=== PATIENT | female | born 1955 | race Caucasian/White ===

== ENCOUNTER 2016-10-14 00:44 | Inpatient (IN) | payer BC ==
[2016-10-14] MEDS ORDERED: Sodium Chloride 0.9% 1000 ML 1,000 ML IV STA (00:59)
[2016-10-14] MEDS ORDERED: Sodium Chloride 0.9% 1000 ML 1,000 ML ONE ×2 (01:00→01:46)
--- NOTE | 2016-10-14 01:11 | ERPHSYRPT ---
- History of Present Illness Time Seen by Provider: 10/14/16 01:05 Source: patient Exam Limitations: no limitations Patient Subjective Stated Complaint: PT STATES 2 DAYS AGO SHE BEGAN HAVING BACK AND FLANK PAIN. REPORTS CHILLS, WEAKNESS, FATIGUE, SOB AND VOMITING. ALSO REPORTS SHE HAS HAD SOME DIARRHEA AND DIFFICULTY URINATING. PT REPORTS SHE HAS RECENTLY DX WITH DMII AND STARTED ON METFORMIN, SHE IS CONCERNED SHE IS EXPERIENCING SIDE EFFECTS. Triage Nursing Assessment: PT IS AOX3, TX TO TRT AREA PER WC, PT IS SHORT OF BREATH WITH SHALLOW, PANTING RESPIRATIONS, SKIN IS PALE AND WARM TO TOUCH, PULSE IS RAPID. PT COMPLAINS OF BACK PAIN THAT RADIATES TO THE LEFT FLANK. Physician History: Pt. with L flank/lat abdominal pain for past 2 days. States pain was worse yesterday at 02/25 but 3/10 today. States pain is sharp, constant, rad to side associated with nausea, vomited X3-5 times/day, fever, dizziness, weakness and SOB adri. worse with activity. No chest pain, diaphoresis, palpitations, cough or URI symptoms. Minimal appetite and fluids input. Timing/Duration: yesterday Method of Injury: unknown Quality: sharp Back Pain Location: lumbar spine (L flank pain) Severity of Pain-Max: severe Severity of Pain-Current: mild (3/) Modifying Factors: Improves With: nothing Associated Symptoms: fever, chills, nausea, vomiting, light-headedness, dizziness, weakness, No sweating, No urinary incontinence, No loss of bowel control, No problems urinating, No tingling in legs/feet Previous symptoms: no prior history Allergies/Adverse Reactions: propofol Allergy (Verified 04/24/16 11:58) Home Medications: Estradiol 1 mg [Estrace 1 mg] 1 mg PO HS 04/02/13 [History] Ropinirole HCl 2 mg PO HS 04/02/13 [History] Metoprolol Tartrate 50 mg PO BID 02/15/15 [History] Atorvastatin Calcium [Lipitor 40Mg] 40 mg PO DAILY 11/16/15 [History] Furosemide 20 mg [Lasix 20 mg] 20 mg PO .PRN 11/16/15 [History] Hx Tetanus, Diphtheria Vaccination/Date Given: No Hx Influenza Vaccination/Date Given: No Hx Pneumococcal Vaccination/Date Given: No Immunizations Up to Date: Yes - Review of Systems Constitutional: Fever, Chills, Fatigue, Lethargy, Weakness Eyes: No Symptoms Ears, Nose, & Throat: No Symptoms Respiratory: Dyspnea, No Cough, No Wheezing Cardiac: Orthopnea, No Chest Pain, No Edema, No Palpitations, No Syncope Abdominal/Gastrointestinal: Nausea, Vomiting, No Abdominal Pain, No Diarrhea, No Hematemesis, No Hematochezia Genitourinary Symptoms: Dysuria, No Frequency, No Incontinence, No Urgency Musculoskeletal: Back Pain, No Neck Pain Skin: No Symptoms, No Rash Neurological: Dizziness, No Focal Weakness, No Headache, No Sensory Changes Psychological: No Symptoms Endocrine: No Symptoms Hematologic/Lymphatic: No Symptoms Immunological/Allergic: No Symptoms All Other Systems: Reviewed and Negative - Past Medical History Pertinent Past Medical History: Yes Neurological History: No Pertinent History ENT History: No Pertinent History Cardiac History: High Cholesterol, Other Respiratory History: Bronchitis, COPD Endocrine Medical History: No Pertinent History, Diabetes Type II Musculoskeletal History: No Pertinent History GI Medical History: No Pertinent History History: No Pertinent History Psycho-Social History: Anxiety, Depression Female Reproductive Disorders: No Pertinent History - Past Surgical History Past Surgical History: Yes Neuro Surgical History: No Pertinent History Cardiac: Cardiac Catheterization (7-8 yrs ago showed one vessel with 70% blockage.) Gastrointestinal: Cholecystectomy, Exploratory Laparoscopy Female Surgical History: Hysterectomy Other Surgical History: LEFT THUMB JOINT SURGERY, foot surgery - Social History Smoking Status: Current every day smoker How long have you smoked: 1.5 PPD Exposure to second hand smoke: No Drug Use: none Patient Lives Alone: No - Female History Hx Last Menstrual Period: HYST - Nursing Vital Signs Nursing Vital Signs: Initial Vital Signs Temperature 103.6 F Temperature Source Rectal Pulse Rate 100 Respiratory Rate 20 Blood Pressure [Right Arm] 119/71 Pain Intensity 4 - Physical Exam General Appearance: no apparent distress, alert Eye Exam: PERRL/EOMI, eyes nml inspection Ears, Nose, Throat Exam: normal ENT inspection Neck Exam: normal inspection, non-tender, supple, full range of motion, No meningismus, No midline tenderness Respiratory Exam: normal breath sounds, lungs clear, No respiratory distress Cardiovascular Exam: regular rate/rhythm, tachycardia, capillary refill <2 sec Gastrointestinal Exam: soft, normal bowel sounds, No tenderness, No mass, No guarding Back Exam: CVA tenderness (L flank pain), decreased range of motion Extremity Exam: normal inspection, normal range of motion, No calf tenderness, No pedal edema Peripheral Pulses: dorsalis-pedis (R): 2+, dorsalis-pedis (L): 2+ Neurologic Exam: alert, oriented x 3, cooperative, 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, normal mood/affect, nml station & gait, sensation nml, No motor deficits Skin Exam: normal color, warm, dry, No rash SpO2 Interpretation: borderline oxygenation SpO2: 92 Oxygen Delivery: Room Air - Course Nursing assessment & vital signs reviewed: Yes EKG Interpreted by Me: RATE (118), Sinus Tach, NORMAL AXIS, NORMAL INTERVALS, NORMAL QRS, Non-specific ST Changes - Radiology Exams Chest X-ray Interpretation: Teleradiologist Report, No Pneumonia - CT Exams Abdomen/Pelvis CT Interpretation: Tele-radiologist Report, Other (hydrouereter with mild hydronephrosis, possible 2.1 mm distal ureteral stone, perinephric edema consistent with pyeloneprhritis) Ordered Tests: Active Orders 24 hr Category Date Time Status 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 Care 10/14/16 01:31 Active EKG-ER Only STAT Care 10/14/16 01:04 Active IV Insertion STAT Care 10/14/16 00:59 Active cath [Cath for Specimen-Straight] STAT Care 10/14/16 01:40 Active ABDOMEN AND PELVIS W/0 CONTRAS [CT] Stat Exams 10/14/16 01:43 Taken CHEST 1 VIEW (PORTABLE) Stat Exams 10/14/16 01:19 Taken BLOOD CULTURE Stat Lab 10/14/16 01:25 Received BMP Stat Lab 10/14/16 01:15 Completed CBC W DIFF Stat Lab 10/14/16 01:15 Completed CULTURE,URINE Stat Lab 10/14/16 01:40 Received Lactic Acid Stat Lab 10/14/16 01:20 Completed Manual Differential NC Stat Lab 10/14/16 01:15 Completed UA W/ MICROSCOPIC Stat Lab 10/14/16 01:40 Completed Medication Summary Generic Name Dose Route Start Last Admin Trade Name Freq PRN Reason Stop Dose Admin Sodium Chloride 1,000 mls @ 125 mls/hr 10/14/16 02:00 10/14/16 02:01 Sodium Chloride 0.9% 1000 Ml IV 11/13/16 01:59 125 mls/hr .Q8H SASHA Administration Levofloxacin/Dextrose 500 mg in 100 mls @ 100 mls/hr 10/14/16 02:19 Levofloxacin 500mg/100ml D5w IV 10/14/16 03:18 STAT ONE Discontinued Medications Generic Name Dose Route Start Last Admin Trade Name Cleo PRN Reason Stop Dose Admin Acetaminophen 975 mg 10/14/16 01:21 10/14/16 01:27 Tylenol 325 Mg PO 10/14/16 01:22 975 mg STAT STA Administration Acetaminophen Confirm 10/14/16 01:25 Tylenol 325 Mg Administered 10/14/16 01:26 Dose 975 mg .ROUTE .STK-MED ONE Fentanyl Citrate 25 mcg 10/14/16 02:26 Sublimaze 100 Mcg/2 Ml IV 10/14/16 02:27 STAT ONE Fentanyl Citrate Confirm 10/14/16 02:29 Sublimaze 100 Mcg/2 Ml Administered 10/14/16 02:30 Dose 100 mcg .ROUTE .STK-MED ONE Sodium Chloride Confirm 10/14/16 01:00 Sodium Chloride 0.9% 1000 Ml Administered 10/14/16 01:01 Dose 1,000 mls @ ud .ROUTE .STK-MED ONE Sodium Chloride 1,000 mls @ 999 mls/hr 10/14/16 00:59 10/14/16 00:59 Sodium Chloride 0.9% 1000 Ml IV 10/14/16 01:59 999 mls/hr .Q1H1M STA Administration Sodium Chloride Confirm 10/14/16 01:46 Sodium Chloride 0.9% 1000 Ml Administered 10/14/16 01:47 Dose 1,000 mls @ ud .ROUTE .STK-MED ONE Levofloxacin/Dextrose Confirm 10/14/16 02:25 Levofloxacin 500mg/100ml D5w Administered 10/14/16 02:26 Dose 500 mg in 100 mls @ ud IV .STK-MED ONE Ketorolac Tromethamine 30 mg 10/14/16 01:45 10/14/16 01:49 Toradol 30 Mg Injection IV 10/14/16 01:46 30 mg STAT ONE Administration Ketorolac Tromethamine Confirm 10/14/16 01:46 Toradol 30 Mg Injection Administered 10/14/16 01:47 Dose 30 mg .ROUTE .STK-MED ONE Ondansetron HCl 4 mg 10/14/16 01:32 10/14/16 01:49 Zofran 4 Mg/2 Ml Vial IV 10/14/16 01:33 4 mg STAT ONE Administration Ondansetron HCl Confirm 10/14/16 01:48 Zofran 4 Mg/2 Ml Vial Administered 10/14/16 01:49 Dose 4 mg .ROUTE .STK-MED ONE Lab/Rad Data: Laboratory Result Diagrams 10/14/16 01:15 10/14/16 01:15 Laboratory Results 10/14/16 10/14/16 10/14/16 Range/Units 01:40 01:20 01:15 WBC (4.0-10.5) K/mm3 RBC (4.1-5.4) M/mm3 Hgb (12.0-16.0) gm/dl Hct (35-47) % MCV (78-100) fl MCH (26-32) pg MCHC (32-36) g/dl RDW (11.5-14.0) % Plt Count (150-450) K/mm3 MPV (6-9.5) fl Sodium 132 L (136-145) mEq/L Potassium 3.4 L (3.5-5.1) mEq/L Chloride 95 L (98-107) mEq/L Carbon Dioxide 22.4 (21-32) mEq/L Anion Gap 18.0 H (5-15) MEQ/L BUN 14 (9-20) mg/dL Creatinine 1.35 H (0.55-1.30) mg/dl Estimated GFR 43 ML/MIN Glucose 169 H (70-110) MG/DL Lactic Acid 1.6 (0.4-2.0) Calcium 9.3 (8.5-10.1) mg/dL Ur Collection Type CATH Urine Color GERI (YELLOW) Urine Appearance SLIGHTLY CLOUDY (CLEAR) Urine pH 5.5 (5-6) Ur Specific [place] 1.020 (1.005-1.025) Urine Protein 100 (Negative) Urine Glucose (UA) NEGATIVE (NEGATIVE) mg/dL Urine Ketones TRACE (NEGATIVE) Urine Nitrite NEGATIVE (NEGATIVE) Urine Bilirubin MODERATE (NEGATIVE) Urine Urobilinogen 2 (0-1) mg/dL Urine WBC (Auto) MODERATE (NEGATIVE) Urine RBC (Auto) MODERATE (0-5) Madhav/ul Urine Microscopic RBC 5-10 (0-2) /HPF Urine Microscopic WBC 50-100 (0-5) /HPF Ur Epithelial Cells RARE (FEW) /HPF Urine Bacteria MODERATE (NEGATIVE) /HPF Specimen Received [id number] 10/14/16 Range/Units 01:15 WBC 22.1 H (4.0-10.5) K/mm3 RBC 5.27 (4.1-5.4) M/mm3 Hgb 15.9 (12.0-16.0) gm/dl Hct 47.7 H (35-47) % MCV 90.5 (78-100) fl MCH 30.2 (26-32) pg MCHC 33.3 (32-36) g/dl RDW 13.2 (11.5-14.0) % Plt Count 229 (150-450) K/mm3 MPV 10.3 H (6-9.5) fl Sodium (136-145) mEq/L Potassium (3.5-5.1) mEq/L Chloride (98-107) mEq/L Carbon Dioxide (21-32) mEq/L Anion Gap (5-15) MEQ/L BUN (9-20) mg/dL Creatinine (0.55-1.30) mg/dl Estimated GFR ML/MIN Glucose (70-110) MG/DL Lactic Acid (0.4-2.0) Calcium (8.5-10.1) mg/dL Ur Collection Type Urine Color (YELLOW) Urine Appearance (CLEAR) Urine pH (5-6) Ur Specific [place] (1.005-1.025) Urine Protein (Negative) Urine Glucose (UA) (NEGATIVE) mg/dL Urine Ketones (NEGATIVE) Urine Nitrite (NEGATIVE) Urine Bilirubin (NEGATIVE) Urine Urobilinogen (0-1) mg/dL Urine WBC (Auto) (NEGATIVE) Urine RBC (Auto) (0-5) Madhav/ul Urine Microscopic RBC (0-2) /HPF Urine Microscopic WBC (0-5) /HPF Ur Epithelial Cells (FEW) /HPF Urine Bacteria (NEGATIVE) /HPF Specimen Received - Progress Progress: improved Progress Note: 10/14/16 01:28 Pt. given IVF's, Tylenol and Zofran with improvement of BP/HR. Initial SBP in 80's improved to 110's, HR decrease from 130's to 100's 10/14/16 02:39 Pt. also given Fentanyl, Levaquin and Toradol with some relief of her flank pain Discussed with : Rachael (Notified about pt. and agrees to admit) Will see patient in: hospital (observation) Counseled pt/family regarding: lab results, diagnosis, rad results - Departure Time of Disposition: 02:41 Departure Disposition: Observation Clinical Impression: Pyelonephritis, acute, Renal lithiasis Condition: Stable Critical Care Time: No
[2016-10-14] MEDS ORDERED: TYLENOL 325 MG PO STA (01:21)
[2016-10-14] MEDS ORDERED: TYLENOL 325 MG ONE (01:25)
[2016-10-14] MEDS ORDERED: Zofran 4 MG/2 ML VIAL IV ONE (01:32)
[2016-10-14 01:33] LABS: Mean Cell Volume 90.5 fl (78-100); Mean Corpuscular Hemoglobin 30.2 pg (26-32); Mean Platelet Volume 10.3 fl (6-9.5); Platelet Count 229 K/mm3 (150-450); Red Blood Count 5.27 M/mm3 (4.1-5.4); Red Cell Distribution Width 13.2 % (11.5-14.0); White Blood Count 22.1 K/mm3 (4.0-10.5)
[2016-10-14] MEDS ORDERED: TORAdol 30 mg Injection IV ONE (01:45)
[2016-10-14] MEDS ORDERED: TORAdol 30 mg Injection ONE (01:46)
[2016-10-14] MEDS ORDERED: Zofran 4 MG/2 ML VIAL ONE (01:48)
[2016-10-14 01:50] LABS: Carbon Dioxide 22.4 mEq/L (21-32); Potassium 3.4 mEq/L (3.5-5.1)
[2016-10-14] MEDS ORDERED: Sodium Chloride 0.9% 1000 ML 1,000 ML IV SCH (02:00)
[2016-10-14 02:07] LABS: Collection Type CATH
[2016-10-14 02:08] LABS: ADD URINE CULTURE? YES (NO); Bacteria MODERATE /HPF (NEGATIVE); COMPLETE URINE MICROSCOPIC? YES; Epithelial Cells RARE /HPF (FEW); Ph 5.5 (5-6); WBC 50-100 /HPF (0-5)
[2016-10-14] MEDS ORDERED: Levofloxacin 500MG/100ML D5W 500 MG/100 ML BAG IV ONE ×2 (02:19→02:25)
[2016-10-14] MEDS ORDERED: SUBLIMAZE 100 MCG/2 ML IV ONE (02:26)
[2016-10-14] MEDS ORDERED: SUBLIMAZE 100 MCG/2 ML ONE (02:29)
[2016-10-14 03:55] LABS: BAND 4 % (0.0-2.0); Platelet Estimate NORMAL (NORMAL); Total Cells Counted 100
[2016-10-14] MEDS ORDERED: Zofran 4 MG/2 ML VIAL IV PRN (04:07)
[2016-10-14] MEDS ORDERED: REQUIP 2MG TAB ONE (04:15)
[2016-10-14] MEDS: REQUIP 2MG TAB PO SCH ×2 (04:16→21:58)
[2016-10-14] MEDS: Sodium Chloride 0.9% 1000 ML 1,000 ML IV SCH ×2 (04:25→18:43)
[2016-10-14] MEDS: TYLENOL 325 MG PO PRN ×2 (07:56→16:39)
--- NOTE | 2016-10-14 10:16 | PCM.HP ---
History of Present Illness - Chief Complaint Chief Complaint: acute pyelonephritis History of Present Illness: is a 61 year old female pt from [facility] who sees Laurita Zamudio, came to ER yesterday due to vomiting and not urinating all day. The night before she had 10/10 low back pain radiating to L groin. Subjective fever. Some fatigue and dizziness. She was found to have BP in the 90s systolic in the ER and CT revealed 2.1 mm distal ureteral stone and stranding indicative of pyelonephritis , supported by UA results. She was admitted to the ICU on IV fluids and IV levaquin. She has been having some SOB, she states she gets this when she is sick as she has COPD. Tmax last night 103.6. Has not urinated since admission. BP around 90 systolic overnight; this a.m. BP in the 100s systolic. - Review of Systems Constitutional: Fever, Fatigue, Weakness Respiratory: Short Of Breath Abdominal/Gastrointestinal: Abdominal Pain, Nausea, Vomiting, Diarrhea (2d ago; stopped when she d/c'd her metformin), Appetite Changes Genitourinary Symptoms: Dysuria Skin: Rash (few weeks ago, on the back; resolved) Psychological: No Depression, No Suicidal Ideations Medications & Allergies Home Medications: Home Medication List Estradiol 1 mg [Estrace 1 mg] 1 mg PO HS 04/02/13 [History Confirmed 10/14] Ropinirole HCl 2 mg PO HS 04/02/13 [History Confirmed 10/14/16] Metoprolol Tartrate 50 mg PO BID 02/15/15 [History Confirmed 10/14/16] Atorvastatin Calcium [Lipitor 40Mg] 40 mg PO DAILY 11/16/15 [History Confirmed 10/14/16] Furosemide 20 mg [Lasix 20 mg] 20 mg PO .PRN 11/16/15 [History Confirmed 10/14/16] Gemfibrozil 600 mg [Lopid 600 mg] 600 mg PO BID 10/14/16 [History Confirmed 10/14/16] Metformin HCl [Metformin HCl ER] 500 mg PO BID 10/14/16 [History Confirmed 10/14] Omeprazole 20 MG [Prilosec 20 mg] 20 mg PO DAILY 10/14/16 [History Confirmed ] Allergies/Adverse Reactions: Allergies Allergy/AdvReac Type Severity Reaction Status Date / Time propofol Allergy Verified 04/24/16 11:58 - Past Medical History Past Medical History: Yes Neurological History: No Pertinent History ENT History: No Pertinent History Cardiac History: High Cholesterol, Hypertension Respiratory History: COPD, Pneumonia Endocrine Medical History: Diabetes Type II Musculoskelatal History: No Pertinent History GI Medical History: Gallbladder Disease History: No Pertinent History Pyscho-Social History: Anxiety, Depression Reproductive Disorders: No Pertinent History - Female History Hx Last Menstrual Period: HYST Are you now?: No - Past Surgical History Past Surgical History: Yes Neuro Surgical History: No Pertinent History Cardiac History: No Pertinent History Respiratory Surgery: No Pertinent History GI Surgical History: Cholecystectomy Genitourinary Surgical Hx: No Pertinent History Musculskeletal Surgical Hx: Other Female Surgical History: Hysterectomy Other Surgical History: partial hysterectomy, left hand surgery, and left foot surgery - Social History Smoking Status: Current every day smoker How long have you smoked: 50 years Exposure to second hand smoke: No Alcohol: None Drug Use: none - Physical Exam Vital Signs: Vital Signs - 24 hr Temp Pulse Resp BP Pulse Ox 10/14/16 08:00 97 H 10/14/16 07:29 98.5 F 97 H 24 88/46 99 10/14/16 06:42 87 22 94/54 94 L 10/14/16 06:05 84 90/54 10/14/16 05:33 82 95/55 10/14/16 04:34 83 102/62 10/14/16 04:13 96 10/14/16 04:07 89 88/61 10/14/16 04:00 97.8 F 90 28 H 72/46 95 10/14/16 03:08 99.6 F 93 H 24 80/50 95 10/14/16 02:50 101 F 10/14/16 02:45 92 L 10/14/16 02:22 100 H 20 94 L 10/14/16 01:40 103.6 F 10/14/16 01:21 113 H 119/71 93 L 10/14/16 01:10 85/50 10/14/16 00:49 100.3 F 134 H 34 H 86/37 92 L 10/14/16 00:45 100.3 F 134 H 34 H 86/37 92 L Oxygen-Last 24 hours O2 Percentage 2 Liters = 28% O2 Percentage 2 Liters = 28% O2 Percentage 2 Liters = 28% O2 Percentage 2 Liters = 28% General Appearance: no apparent distress, alert Neurologic Exam: oriented x 3, cooperative Eye Exam: PERRL/EOMI, eyes nml inspection, No scleral icterus Ears, Nose, Throat Exam: pharynx normal, moist mucous membranes Neck Exam: normal inspection, non-tender, No lymphadenopathy Respiratory Exam: lungs clear, prolonged expirations, wheezing (faint, scattered ), No crackles/rales, No rhonchi Cardiovascular Exam: normal heart sounds, other (mild tachycardia, regular rhythm), No murmur Gastrointestinal/Abdomen Exam: soft, normal bowel sounds, No tenderness, No distention, No mass, No guarding, No rebound Back Exam: normal inspection, No CVA tenderness Extremity Exam: No pedal edema, No swelling Skin Exam: normal color, warm, dry, No rash Results - Labs Lab/Micro Results: Accuchecks Accucheck Value: 99 Accuchecks Accucheck Value: 99 Assessment/Plan (1) Sepsis Current Visit: Yes Status: Acute Qualifiers: Sepsis type: sepsis due to unspecified organism Qualified Code(s): A41.9 - Sepsis, unspecified organism Assessment & Plan: Pyelonephritis, with fever, tachycardia, and hypotension. She has received IV fluids; will do a gentle bolus again. On IV levaquin day #2. Expect some fever today/tonight but decreased from yesterday. BP is actually improving currently. Blood and urine cultures pending. (2) Hypotension Current Visit: Yes Status: Acute Qualifiers: Hypotension type: unspecified hypotension type Qualified Code(s): I95.9 - Hypotension, unspecified Assessment & Plan: due to sepsis. Improving. Code(s): I95.9 - HYPOTENSION, UNSPECIFIED (3) Pyelonephritis, acute Current Visit: Yes Status: Acute Assessment & Plan: on IV levaquin day #2. Urine culture pending. Code(s): N10 - ACUTE PYELONEPHRITIS (4) Dyspnea Current Visit: Yes Status: Acute Qualifiers: Dyspnea type: shortness of breath Qualified Code(s): R06.02 - Shortness of breath Assessment & Plan: Likely related to her COPD, however, will give treatment dose of SQ lovenox unless her d-dimer is negative (however with current pyelonephritis, will probably be positive). Cannot do CTA chest due to renal function. If renal function improves, may be able to do CTA; if not would plan to do VQ scan unless her dyspnea improves. Code(s): R06.00 - DYSPNEA, UNSPECIFIED (5) Renal lithiasis Current Visit: Yes Status: Acute Assessment & Plan: A 2.1 mm stone distal ureter, should pass, strain urine. May add flomax when BP improves. (6) COPD (chronic obstructive pulmonary disease) Current Visit: Yes Status: Chronic (7) HTN (hypertension) Current Visit: Yes Status: Chronic Qualifiers: Hypertension type: essential hypertension Qualified Code(s): I10 - Essential (primary) hypertension Assessment & Plan: hold meds as she has been hypotensive. restart toprol when bp increases over 120 systolic. Code(s): I10 - ESSENTIAL (PRIMARY) HYPERTENSION (8) DVT prophylaxis Current Visit: Yes Status: Acute Assessment & Plan: as noted above, treatment dose of lovenox currently. Code(s): FMF0733 - (9) Oliguria Current Visit: Yes Status: Acute Assessment & Plan: After I saw the pt she did void 100cc. Bolus now. If not producing more urine today will check bladder scan. Code(s): R34 - ANURIA AND OLIGURIA (10) Tobacco abuse Current Visit: Yes Status: Acute Assessment & Plan: 1.5 PPD smoker; 21mg nicoderm patch placed. Code(s): Z72.0 - TOBACCO USE
--- NOTE | 2016-10-14 10:23 | XRAY ---
Indication: Short of breath. Back pain. Comparison: August 21, 2016. Portable chest again without focal infiltrate, consolidation, or large effusion. Heart is not enlarged. Bony thorax intact again with mild degenerative changes. Impression: Stable nonacute chest. Comment: Preliminary interpretation was made by [facility]. No discrepancy.
--- NOTE | 2016-10-14 10:26 | XRAY ---
Indication: Back and flank pain. Nausea, emesis, and fever. Multiple contiguous axial images obtained through the abdomen and pelvis without contrast as ordered. Comparison: December 28, 2010. Lung bases are clear. Heart is not enlarged. Left kidney is now prominent with moderate perirenal stranding favoring pyelonephritis. Ureter also demonstrates stranding along its course. Stable tiny left pelvic floor calcifications favoring phlebolith. No calculus, hydronephrosis, or hydroureter. There are now several subcentimeter periaortic nodes probably reactive. Again there are bilateral renal cysts including left pararenal cyst. Right lower pole cyst has increased in size measuring 2.3 cm. Noncontrasted stomach and bowel loops appear nonobstructed. Minimal descending/sigmoid diverticulosis without diverticulitis. Again previous cholecystectomy and hysterectomy. No free fluid/air. Remaining liver, pancreas, spleen, adrenal glands, and bladder appear unremarkable for noncontrast exam. Mild aortoiliac calcifications without AAA. Osseous structures intact again with mild degenerative changes throughout the spine. Impression: 1. Left kidney is now prominent with moderate perirenal stranding but no hydronephrosis/hydroureter favoring pyelonephritis. Additional stranding seen along the course of the left ureter. 2. Several tiny periaortic lymph nodes presumed reactive. 3. Again incidental bilateral renal cysts and colonic diverticulosis. Comment: Preliminary interpretation was made by [facility] who reports distal left ureter calculus which I believe is a pelvic phlebolith as it is unchanged. There has also no hydronephrosis/hydroureter. I gave telephone report to Dr. Beltran in the ER at 1012 hrs. on October 14, 2016.
[2016-10-14] MEDS: Nicoderm CQ 21 MG TOP SCH (10:42)
[2016-10-14] MEDS: PROTONIX 40 MG IV IV SCH (10:43)
[2016-10-14] MEDS: ENOXAPARIN SODIUM SQ SCH ×2 (11:39→21:58)
[2016-10-14] MEDS: DILAUDID 2 MG INJECTION IV PRN ×2 (18:10→23:33)
[2016-10-14] MEDS: ESTRACE 1 MG PO SCH (21:57)
[2016-10-14] MEDS: LIPITOR 40MG PO SCH (21:58)
[2016-10-14] MEDS ORDERED: Levofloxacin 500MG/100ML D5W 500 MG/100 ML BAG IV SCH (22:00)
[2016-10-14] MEDS ORDERED: MOTRIN 600 MG PO PRN (23:58)
[2016-10-15] MEDS ORDERED: TYLENOL 325 MG PO PRN (00:02)
[2016-10-15] MEDS ORDERED: MOTRIN 600 MG ONE (00:13)
[2016-10-15] MEDS: Sodium Chloride 0.9% 1000 ML 1,000 ML IV SCH ×3 (01:46→21:14)
[2016-10-15 05:41] LABS: BASOPHIL % 0.1 % (0.0-0.4); Eosinophil % 1.7 % (0.00-5.0); Granulocytes % 80.5 % (36.0-66.0); Lymphocytes % 12.6 % (24.0-44.0); Mean Cell Volume 94.9 fl (78-100); Mean Corpuscular Hemoglobin 30.5 pg (26-32); Mean Platelet Volume 10.3 fl (6-9.5); Monocytes % 5.1 % (0.0-12.0); Platelet Count 182 K/mm3 (150-450); Red Cell Distribution Width 13.3 % (11.5-14.0); White Blood Count 12.9 K/mm3 (4.0-10.5)
[2016-10-15 05:58] LABS: ALBUMIN 2.1 g/dL (3.4-5.0); ANION GAP 12.6 MEQ/L (5-15); BILIRUBIN,TOTAL 0.6 mg/dL (0.2-1.0); Carbon Dioxide 23.7 mEq/L (21-32); Potassium 3.2 mEq/L (3.5-5.1); Total Protein 6.4 gm/dL (6.4-8.2)
[2016-10-15] MEDS ORDERED: HOLD METFORMIN PRODUCTS FOR 48 HOURS MC PRN (08:35)
[2016-10-15] MEDS: DILAUDID 2 MG INJECTION IV PRN ×2 (08:39→22:52)
--- NOTE | 2016-10-15 09:23 | XRAY ---
Exam: Urinary bladder ultrasound from 10/14/2016. Comparison: CT of the abdomen and pelvis without IV contrast from 10/14/2016. Indication: Decreased urine output. Findings: The filled urinary bladder measured 9.48 cm in length, 7.18 cm in AP depth, and 8.75 cm in width yielding an estimated urinary bladder volume of 312.1 ML's. No obvious mass was seen. Some reverberation artifact is seen within the bladder lumen. No urinary bladder wall thickening is seen. The patient was then allowed to void. Images of the post void urinary bladder measured 6.3 cm in length, 5.34 cm in AP dimension, and 6.7 cm in width yielding an estimated urinary bladder volume of 118.0 ML's. Impression: 1. Prevoid urinary bladder volume measured 312.1 ML's and postvoid urinary bladder volume measured 118.0 ML's. This corresponds to a 37.8% urinary bladder residual. Correlate clinically.
--- NOTE | 2016-10-15 09:59 | XRAY ---
Exam: CT of the chest with IV contrast . CTDI: 23.69 Comparison: AP portable chest film from 10/14/2016 at 0145 hours. Indication: Elevated d-dimer (16.53) Technique: Post-IV contrast axial images were obtained through the chest using the PE protocol with 80 cc of Isovue-370 IV contrast material. Only coronal reconstructed MIPS images were available the time of this reading. Findings: The central pulmonary arteries enhance well and reveal no filling defects to suggest clot/emboli. Also, no thoracic aortic aneurysm or dissection is appreciated. No abnormal bulky mediastinal or perihilar lymphadenopathy is seen. No other significant mediastinal or perihilar abnormality is seen. A small amount of left coronary artery vascular calcification is seen. The lungs are adequately expanded. I believe there are some subtle emphysematous changes within the upper lung ocampo. There is a minimal amount of posterior bilateral pleural fluid with adjacent atelectasis at both posterior lung bases, left greater than right. Minimal concomitant infiltrate at the posterior left lung base is difficult to exclude. There is no pneumothorax or suspicious soft tissue lung nodules. The upper abdomen reveals no definite acute process. There may be some fatty infiltration within the liver. Surgical clips consistent with prior cholecystectomy are seen. The adrenal glands appear unremarkable. I believe there is a portion of the cyst seen at the lateral aspect of the middle third of the right kidney measuring 3.6 cm in diameter. There is a 3.3 cm in diameter round indeterminate mass at the anterior aspect of the middle third of the left kidney on at least the 2 most inferior cuts. This is incompletely characterized by this exam. A solid renal lesion is not excluded. I believe there are some small periaortic lymph nodes within the visualized upper to mid abdomen. On a size criteria these are not significant and are probably reactive. Thoracic spurring is evident. No definite fracture or suspicious bone lesion is seen. Impression: 1. I see no evidence of acute pulmonary embolus, thoracic aortic aneurysm, or thoracic aortic dissection. A small amount of left coronary artery vascular calcification is seen. 2. Minimal bilateral posterior pleural effusions with some adjacent atelectasis at both posterior lung bases are seen. The possibility of some minimal concomitant infiltrate at the posterior medial left lung base is difficult to exclude, as I see subtle air bronchograms at this site as well. 3. I believe there are some subtle emphysematous changes within the upper lung ocampo. No other acute cardiopulmonary disease is seen. 4. 3.3 cm in diameter indeterminate left renal mass lesion is seen on the 2 most inferior cuts within the upper abdomen. See axial images #158 and #159. A solid lesion is not excluded. 5. Mild hepatic steatosis.
[2016-10-15] MEDS: ENOXAPARIN SODIUM SQ SCH ×2 (11:00→21:15)
[2016-10-15] MEDS: Nicoderm CQ 21 MG TOP SCH (11:01)
[2016-10-15] MEDS: PROTONIX 40 MG IV IV SCH (11:03)
[2016-10-15] MEDS: MOTRIN 600 MG PO PRN (12:45)
[2016-10-15] MEDS: ESTRACE 1 MG PO SCH (21:16)
[2016-10-15] MEDS: Levofloxacin 500 MG Tablet PO SCH (21:16)
[2016-10-15] MEDS: LIPITOR 40MG PO SCH (21:17)
[2016-10-15] MEDS: REQUIP 2MG TAB PO SCH (21:17)
[2016-10-15] MEDS ORDERED: LIPITOR 40MG PO SCH (22:00)
[2016-10-16] MEDS: MOTRIN 600 MG PO PRN ×2 (03:58→16:08)
[2016-10-16 05:27] LABS: BASOPHIL % 0.1 % (0.0-0.4); Eosinophil % 2.3 % (0.00-5.0); Lymphocytes % 11.8 % (24.0-44.0); Mean Corpuscular Hemoglobin 30.2 pg (26-32); Mean Platelet Volume 10.4 fl (6-9.5); Monocytes % 7.8 % (0.0-12.0); Platelet Count 200 K/mm3 (150-450); Red Blood Count 3.97 M/mm3 (4.1-5.4); Red Cell Distribution Width 13.2 % (11.5-14.0); White Blood Count 9.4 K/mm3 (4.0-10.5)
[2016-10-16] MEDS: Sodium Chloride 0.9% 1000 ML 1,000 ML IV SCH (05:28)
[2016-10-16 05:48] LABS: ALBUMIN 2.3 g/dL (3.4-5.0); ALKALINE PHOSPHATASE 206 U/L (46-116); ANION GAP 12.4 MEQ/L (5-15); BLOOD UREA NITROGEN 6 mg/dL (9-20); CHLORIDE 108 mEq/L (98-107); Glucose 121 MG/DL (70-110); Potassium 3.1 mEq/L (3.5-5.1); SGOT/AST 85 U/L (15-37); SGPT/ALT 50 U/L (12-78); SODIUM 142 mEq/L (136-145); Total Protein 6.8 gm/dL (6.4-8.2)
[2016-10-16] MEDS: DILAUDID 2 MG INJECTION IV PRN ×2 (06:53→12:49)
[2016-10-16] MEDS: ENOXAPARIN SODIUM SQ SCH ×2 (09:58→21:40)
[2016-10-16] MEDS: Nicoderm CQ 21 MG TOP SCH (09:58)
[2016-10-16] MEDS: PROTONIX 40 MG IV IV SCH (09:59)
--- NOTE | 2016-10-16 13:59 | XRAY ---
Exam: Renal ultrasound from 10/16/2016. Comparison: CT of the abdomen and pelvis without IV contrast from 10/14/2016. Indication: Abnormality on CT. The right kidney measures 12.7 cm in length and reveals an unremarkable shape. The renal cortex measures 1.5 cm in diameter and appears unremarkable. A 2.5 cm x 1.6 cm x 3.4 cm in diameter cyst is seen within the upper pole of the right kidney. Bowel gas partially obscures the inferior pole of the right kidney. Previously identified cyst at the inferior posterior margin of the right kidney on the CT study of 10/14/2016 was not imaged by the technologist. No hydronephrosis or solid mass within the right kidney is seen. The left kidney measures 13.8 cm in length and demonstrates a normal reniform shape as well. The left renal cortex measures 1.7 cm within the upper pole on the sagittal image. A 2.6 cm x 2.1 cm x 2.9 cm cyst is seen within the midpole of the left kidney. No hydronephrosis or solid renal mass is seen. The urinary bladder is partially distended. No definite mass or urinary bladder wall thickening is seen. The invasive cardiovascular technologist was unable to identify the distal ureteral jets with color-flow imaging. Impression: 1. Both kidneys appear of unremarkable size and shape. I see no evidence of hydronephrosis. A cyst measuring a maximum of 3.4 cm in diameter is noted within the upper pole of the right kidney. A cyst measuring 2.9 cm in diameter is seen within the mid aspect of the left kidney. No other renal abnormality was seen by this exam. 2. The urinary bladder appears partially distended, but is otherwise unremarkable. Distal ureteral jets were not seen within the urinary bladder with color-flow imaging.
--- NOTE | 2016-10-16 14:22 | XRAY ---
Exam: Duplex Doppler venous ultrasound examination of the right lower extremity from 10/16/2016. Comparison: None. Indication: Right leg swelling. Findings: Ceramic Tile Mechanic sections of the right common femoral, proximal, mid, and distal superficial femoral vein, popliteal vein, and distal posterior tibial veins reveal normal transducer compression, color flow imaging, and spontaneous and phasic Doppler waveforms with normal Doppler signal augmentation throughout. Images of the profunda femoral vein within the proximal right thigh reveal normal color flow imaging and Doppler signal augmentation. In addition, images of the greater saphenous vein within the proximal right thigh reveal normal color flow imaging and Doppler signal augmentation. Impression: 1. No sonographic or Doppler evidence of deep venous thrombosis within the right lower extremity is seen. Nor do I detect evidence of superficial venous thrombosis within the greater saphenous pain within the proximal right thigh.
[2016-10-16] MEDS: Levofloxacin 500 MG Tablet PO SCH (21:41)
[2016-10-16] MEDS: ESTRACE 1 MG PO SCH (21:41)
[2016-10-16] MEDS: LIPITOR 40MG PO SCH (21:41)
[2016-10-16] MEDS: REQUIP 2MG TAB PO SCH (21:42)
[2016-10-17] MEDS: DILAUDID 2 MG INJECTION IV PRN (00:27)
[2016-10-17] MEDS: Sodium Chloride 0.9% 1000 ML 1,000 ML IV SCH (00:27)
[2016-10-17 05:40] LABS: Mean Cell Volume 94.7 fl (78-100); Platelet Count 195 K/mm3 (150-450); Red Blood Count 3.96 M/mm3 (4.1-5.4); Red Cell Distribution Width 13.2 % (11.5-14.0); White Blood Count 9.3 K/mm3 (4.0-10.5)
[2016-10-17 06:03] LABS: ALBUMIN 2.1 g/dL (3.4-5.0); ALKALINE PHOSPHATASE 272 U/L (46-116); ANION GAP 9.1 MEQ/L (5-15); BLOOD UREA NITROGEN 5 mg/dL (9-20); CHLORIDE 108 mEq/L (98-107); Carbon Dioxide 28.7 mEq/L (21-32); Glucose 109 MG/DL (70-110); SGOT/AST 141 U/L (15-37); SGPT/ALT 122 U/L (12-78); SODIUM 143 mEq/L (136-145); Total Protein 6.6 gm/dL (6.4-8.2)
[2016-10-17] MEDS ORDERED: K-LYTE 25 MEQ PO ONE (06:26)
[2016-10-17 07:03] VITALS: BP 132/69; PULSE 80; O2SAT 98
--- NOTE | 2016-10-17 07:43 | PCM.DCORD ---
- Discharge Discharge Date: 10/17/16 Prescriptions: No Action Estradiol 1 mg [Estrace 1 mg] 1 mg PO HS Ropinirole HCl 2 mg PO HS Metoprolol Tartrate 50 mg PO BID Furosemide 20 mg [Lasix 20 mg] 20 mg PO .PRN Atorvastatin Calcium [Lipitor 40Mg] 40 mg PO DAILY Gemfibrozil 600 mg [Lopid 600 mg] 600 mg PO BID Metformin HCl [Metformin HCl ER] 500 mg PO BID Omeprazole 20 MG [Prilosec 20 mg] 20 mg PO DAILY Follow up with: JYOTI BURNETTE [Primary Care Provider] -
[2016-10-17 07:57] LABS: BAND 2 % (0.0-2.0); Eosinophil 1 % (0.00-3.0); Total Cells Counted 100
[2016-10-17 08:03] LABS: ANISOCYTOSIS 1+; Platelet Estimate NORMAL (NORMAL); Poikilocytosis 1+
--- NOTE | 2016-10-17 08:18 | PCM.DCORD ---
- Discharge Discharge Date: 10/17/16 Prescriptions: New Levofloxacin [Levofloxacin 500 MG Tablet] 500 mg PO DAILY #5 tablet Varenicline Tartrate [Chantix] 1 each PO UD #0 tab.ds.pk Potassium Chloride 10 Meq Tab* [Klor Con 10 MEQ] 10 meq PO DAILY #30 tab Continue Estradiol 1 mg [Estrace 1 mg] 1 mg PO HS Ropinirole HCl 2 mg PO HS Metoprolol Tartrate 50 mg PO BID Furosemide 20 mg [Lasix 20 mg] 20 mg PO .PRN Atorvastatin Calcium [Lipitor 40Mg] 40 mg PO DAILY Gemfibrozil 600 mg [Lopid 600 mg] 600 mg PO BID Metformin HCl [Metformin HCl ER] 500 mg PO BID Omeprazole 20 MG [Prilosec 20 mg] 20 mg PO DAILY Follow up with: JYOTI BURNETTE [Primary Care Provider] - 10/24/16 10:15 am
[2016-10-17] MEDS: PROTONIX 40 MG IV IV SCH (09:40)
[2016-10-17] MEDS: Nicoderm CQ 21 MG TOP SCH ×2 (09:40→09:46)
[2016-10-17] MEDS: ENOXAPARIN SODIUM SQ SCH (09:40)
--- NOTE | 2016-10-18 08:56 | DS ---
DISCHARGE DIAGNOSES: 1) ESCHERICHIA COLI. 2) PYELONEPHRITIS. 3) HYPOTENSION. 4) HYPOXIA. 5) NICOTINE ADDICTION. 6) DIABETES MELLITUS TYPE 2. HOSPITAL COURSE: The patient is a 61 year-old white female presented herself to the emergency room due to complaints of left flank pain, fever, vomiting and shortness of breath. The patient on evaluation was found to have 50 to 100 white blood cell per high power field. The urine culture did grow Escherichia coli which was sensitive to Levaquin which she was started on her initial evaluation. The patient was somewhat slow to respond but did respond as her white blood cell count was initially was 22,000 and dropped down to normal range by 10/16/2016. The patient also did have gram negative rods in the blood culture as well which also grew Escherichia coli likewise sensitive to Levaquin. The patient's evaluation otherwise showed CT scan revealing a cyst measuring 2.4 x 2.9 cm in the left kidney. Ultrasound evaluation of this did reveal it was a cyst and not a solid tumor. The patient had complained of some leg swelling. We did venous Doppler of the legs which was negative. The patient did also have elevated D-dimer and shortness of breath which led us to do CT scan of the chest which was negative for pulmonary embolism. The patient improved to the point that we felt that she was ready for discharge home by the morning of 10/17/2016. She was discharged home on Levaquin 500 mg a day for additional five days. She was given a prescription for Chantix to help her quit smoking. She did qualify for home oxygen with an 87% O2 saturation with ambulation. She will be on 2 liters nasal cannulation. She was also somewhat hypokalemic by the time of her discharge. She had a potassium of 3.0 and we gave her Micro-K and added a new prescription for her to take on a daily basis and she is instructed to follow up in the office in the next week at which time we will reassess her metabolic panel including her electrolytes. The patient is to return to the hospital if she has any further problems in the interim.
== END 2016-10-17 11:45 | disposition home or self-care (01) | DRG 868 ==
LOC: ED 00:44 → MED SURG 03:13 → ICU 03:13 → OBSVTOIN 10:10 → MED SURG 10-15 11:09
PROVIDERS: ADMIT Family Medicine; ATTEND Family Medicine
DX: A49.8 Other bacterial infections of unspecified site (principal); N10 Acute pyelonephritis; I95.9 Hypotension, unspecified; R09.02 Hypoxemia; F17.200 Nicotine dependence, unspecified, uncomplicated; A41.9 Sepsis, unspecified organism; E11.9 Type 2 diabetes mellitus without complications; Z99.81 Dependence on supplemental oxygen; J44.9 Chronic obstructive pulmonary disease, unspecified; I10 Essential (primary) hypertension; N20.0 Calculus of kidney; R34 Anuria and oliguria; F41.8 Other specified anxiety disorders; Z79.899 Other long term (current) drug therapy
CPT/HCPCS: 36000; 36415; 71010; 71260; 74176; 76705; 76770; 80048; 80053; 81000; 82962; 83605; 85025; 85379; 87040; 87077; 87086; 87186; 93005; 93041; 93268; 93971; 94760; 96360; 96361; 96365; 96374; 96375; 99285; J1170; J1650; J1885; J1956; J2405; J3010; P9612; A9270-GY

== ENCOUNTER 2023-12-31 08:18 | Day surgery (SDC) | payer BC, MEDICARE ==
[2023-12-31] MEDS ORDERED: Xylocaine-Mpf 2% 5 Ml Vial IJ ONE (08:19)
[2023-12-31] MEDS ORDERED: Lactated Ringers 1,000 ML IV ONE (09:28)
[2023-12-31] MEDS ORDERED: DIPRIVAN 200 MG/20 ML IV ONE (09:58)
[2023-12-31] MEDS ORDERED: Versed 2 MG/2 ML Injection ONE (09:58)
--- NOTE | 2023-12-31 11:48 | XRAY ---
Indication: Bilateral L4-S1 MBB. Intraoperative fluoroscopy provided for 13 seconds. Single digital spot image submitted for interpretation demonstrates posterior needle tips projecting over the expected left and right L4-S1 nerve roots. Correlate with intraoperative findings/report.
--- NOTE | 2023-12-31 13:35 | XRAY ---
13 seconds of fluoroscopy was used in surgery for a bilateral L4-S1 MBB.
== END 2023-12-31 10:50 | disposition home or self-care (01) ==
LOC: SDC-PAIN 08:18
PROVIDERS: ATTEND Psychiatry & Neurology Pain Medicine
DX: M47.816 Spondylosis without myelopathy or radiculopathy, lumbar region (principal); E11.9 Type 2 diabetes mellitus without complications
CPT/HCPCS: 64483; 64484; 72020; 77002; 82947; J2250; J2704

== ENCOUNTER 2024-03-24 07:40 | Day surgery (SDC) | payer BC, MEDICARE ==
[2024-03-24] MEDS ORDERED: BUPIVACAINE 0.5% VIAL IJ ONE (07:41)
[2024-03-24] MEDS ORDERED: Versed 2 MG/2 ML Injection ONE (09:10)
[2024-03-24] MEDS ORDERED: DIPRIVAN 200 MG/20 ML IV ONE (09:10)
--- NOTE | 2024-03-24 13:45 | XRAY ---
Indication: Bilateral L4-S1 MBB. Intraoperative fluoroscopy provided for 14 seconds. Single digital spot image submitted for interpretation demonstrates posterior needle tips projecting over the expected left and right L4-S1 nerve roots. Correlate with intraoperative findings/report.
--- NOTE | 2024-03-24 14:53 | XRAY ---
14 seconds of fluoroscopy was used in surgery for a bilateral L5-S1 MBB.
== END 2024-03-24 09:44 | disposition home or self-care (01) ==
LOC: SDC-PAIN 07:40
PROVIDERS: ATTEND Psychiatry & Neurology Pain Medicine
DX: M47.816 Spondylosis without myelopathy or radiculopathy, lumbar region (principal); E11.9 Type 2 diabetes mellitus without complications
CPT/HCPCS: 72020; 77002; 82947; J2250; J2704

== ENCOUNTER 2024-07-28 20:03 | Emergency (ER) | payer MEDICARE ==
[2024-07-28 20:17] VITALS: TEMP 98.3
[2024-07-28] MEDS ORDERED: TORAdol 30 mg Injection ONE (21:06)
[2024-07-28] MEDS ORDERED: DECADRON 10MG INJ. ONE (21:06)
[2024-07-28] MEDS: TORAdol 30 mg Injection IV ONE (21:07)
[2024-07-28] MEDS: DECADRON 10MG INJ. IV ONE (21:08)
--- NOTE | 2024-07-28 21:14 | ERPHSYRPT ---
- History of Present Illness Time Seen by Provider: 07/28/24 20:40 Source: patient Exam Limitations: physical impairment Patient Subjective Stated Complaint: pt states that she has been having neck pain since last friday. pt states that she thought she slept on it wrong Triage Nursing Assessment: pt ambulated into the er; pt is axo x4; pt is tear ful; c/o neck pain; pt states 10/10 pain to neck; tenderness with palpation; pt denies fall, trauma, injury to neck; skin PDW; no respiratory distress present; hypertensive Physician History: Patient is a 68-year-old female presents to emergency department for evaluation of left-sided neck pain that started Friday. Patient awoke Friday morning with her symptoms. Patient states that she figured "I slept wrong". Patient reports the pain is gotten progressively worse over the past 4 days. No trauma no fever. No nausea no vomiting no diaphoresis. Patient denies chest pain. Patient states pain is worse when she chews and when she attempts to move her head. Patient denies a history of the same. at bedside. They voiced no other complaints or concerns at this time. Portions of this note were created with voice recognition technology. There may be grammatical, spelling, punctuation or sound alike errors Timing/Duration: day(s) (5 days) Severity: severe (Pain is moderate to severe) Modifying Factors: Improves With: movement Associated Symptoms: denies symptoms Allergies/Adverse Reactions: propofol Allergy (Verified 07/28/24 20:09) Home Medications: Furosemide 20 mg [Lasix 20 mg] 40 mg PO BID PRN 11/16/15 [History] Amlodipine Besylate 5 mg [Norvasc 5 mg] 5 mg PO DAILY 07/28/24 [History] Apixaban [Eliquis] 5 mg PO BID 07/28/24 [History] Budesonide/Glycopyr/Formoterol [Breztri Aerosphere Inhaler] 2 puff IH BID 07/28/24 [History] Dulaglutide [Trulicity] 1.5 mg SQ WEEKLY 07/28/24 [History] Fenofibrate Nanocrystallized [Fenofibrate] 48 mg PO DAILY 07/28/24 [History] Insulin Aspart [Novolog] 3 unit SQ ACHS 07/28/24 [History] Isosorbide Mononitrate 30 mg [Imdur 30 MG] 30 mg PO DAILY 07/28/24 [History] Metoprolol Succinate 50 mg [Toprol Xl 50 MG] 50 mg PO DAILY 07/28/24 [History] Rosuvastatin Calcium 10 mg PO DAILY 07/28/24 [History] Spironolactone 25 mg PO DAILY 07/28/24 [History] Tizanidine HCl 2 mg PO QID 07/28/24 [History] Hx Tetanus, Diphtheria Vaccination/Date Given: No Hx Influenza Vaccination/Date Given: Yes Hx Pneumococcal Vaccination/Date Given: Yes Travel Risk - International Travel Have you traveled outside of the country in past 3 weeks: No - Emerging Infectious Disease Are you exhibiting symptoms associated with any current EIDs: No - Review of Systems Constitutional: No Symptoms, No Fever, No Chills Eyes: No Symptoms Ears, Nose, & Throat: No Symptoms Respiratory: No Symptoms, No Cough, No Dyspnea Cardiac: No Symptoms, No Chest Pain, No Edema, No Syncope Abdominal/Gastrointestinal: No Symptoms, No Abdominal Pain, No Nausea, No Vomiting, No Diarrhea Genitourinary Symptoms: No Symptoms, No Dysuria Musculoskeletal: No Symptoms, No Back Pain, No Neck Pain Skin: No Symptoms, No Rash Neurological: No Symptoms, No Dizziness, No Focal Weakness, No Sensory Changes Psychological: No Symptoms Endocrine: No Symptoms Hematologic/Lymphatic: No Symptoms Immunological/Allergic: No Symptoms All Other Systems: Reviewed and Negative - Past Medical History Pertinent Past Medical History: Yes Neurological History: No Pertinent History ENT History: No Pertinent History Cardiac History: High Cholesterol, Hypertension Respiratory History: COPD, Pneumonia Endocrine Medical History: Diabetes Type II Musculoskeletal History: No Pertinent History GI Medical History: Gallbladder Disease History: No Pertinent History Psycho-Social History: Anxiety, Depression Female Reproductive Disorders: No Pertinent History - Past Surgical History Past Surgical History: Yes Neuro Surgical History: No Pertinent History Cardiac: No Pertinent History Respiratory: No Pertinent History Gastrointestinal: Cholecystectomy Genitourinary: No Pertinent History Musculoskeletal: Other Female Surgical History: Hysterectomy Other Surgical History: partial hysterectomy, left hand surgery, and left foot surgery - Social History Smoking Status: Smoker, status unknown How long have you smoked: 50 years Exposure to second hand smoke: No Drug Use: none - Social Determinants of Health Will the patient participate in the screening: Yes Do you worry about a steady place to live?: No Do you have any problems with any of the following?: No known problems In the past 12 months,have you had to go without utilities?: No Transportation Issues: No Has anyone in your support network made you feel unsafe?: No Have you or anyone in your house had to go w/o enough food: No - Nursing Vital Signs Nursing Vital Signs: Initial Vital Signs Pulse Rate 75 07/28/24 20:08 Blood Pressure 153/87 07/28/24 20:08 O2 Sat by Pulse Oximetry 99 07/28/24 20:08 Pain Scale Pain Intensity 7 - Physical Exam General Appearance: no apparent distress, alert Eye Exam: PERRL/EOMI, eyes nml inspection Ears, Nose, Throat Exam: normal ENT inspection, TMs normal, pharynx normal, moist mucous membranes Neck Exam: normal inspection, non-tender, supple, full range of motion, other (Tenderness to palpation along the left lateral neck into the left upper trapezius and shoulder area. Overlying soft tissue intact. No signs of trauma.) Respiratory Exam: normal breath sounds, lungs clear, airway intact, No respiratory distress Cardiovascular Exam: regular rate/rhythm, normal heart sounds, normal peripheral pulses Gastrointestinal/Abdomen Exam: soft, normal bowel sounds, No tenderness, No mass Back Exam: normal inspection, normal range of motion, No CVA tenderness, No vertebral tenderness Extremity Exam: normal inspection, normal range of motion, pelvis stable Neurologic Exam: alert, oriented x 3, cooperative, normal mood/affect, sensation nml, No motor deficits Skin Exam: normal color, warm, dry, No rash Lymphatic Exam: No adenopathy SpO2 Interpretation: normal SpO2: 94 O2 Delivery: Room Air - Course Nursing assessment & vital signs reviewed: Yes - CT Exams Soft Tissue Neck CT Interpretation: Tele-radiologist Report (Enlarged submandibular gland. Sialoadenitis) Ordered Tests: Active Orders 24 hr Category Date Time Status Electric Switch Tester STAT Care 07/28/24 20:50 Active IV Insertion STAT Care 07/28/24 20:50 Active Pulse Oximetry (ED) STAT Care 07/28/24 20:50 Active NECK WITH CONTRAST [CT] Stat Exams 07/28/24 20:52 Taken CBC W DIFF Stat Lab 07/28/24 20:59 Completed CMP Stat Lab 07/28/24 20:59 Completed TROPONIN Q4H Lab 07/28/24 20:59 Completed TROPONIN Q4H Lab 07/29/24 01:00 Ordered TROPONIN Q4H Lab 07/29/24 05:00 Ordered Medication Summary Discontinued Medications Generic Name Dose Route Start Last Admin Trade Name Cleo PRN Reason Stop Dose Admin Dexamethasone Sodium Phosphate 10 mg 07/28/24 20:51 07/28/24 21:08 Dexamethasone Sod Phosphate 10 Mg/Ml IV 07/28/24 20:52 10 mg STAT ONE Administration Dexamethasone Sodium Phosphate Confirm 07/28/24 21:06 Dexamethasone Sod Phosphate 10 Mg/Ml Administered 07/28/24 21:07 Dose 10 mg .ROUTE .STK-MED ONE Ketorolac Tromethamine 30 mg 07/28/24 20:51 07/28/24 21:07 Ketorolac Tromethamine 30 Mg/Ml Inj IV 07/28/24 20:52 30 mg STAT ONE Administration Ketorolac Tromethamine Confirm 07/28/24 21:06 Ketorolac Tromethamine 30 Mg/Ml Inj Administered 07/28/24 21:07 Dose 30 mg .ROUTE .STK-MED ONE Lab/Rad Data: Laboratory Result Diagrams 07/28/24 20:59 07/28/24 20:59 Laboratory Results 07/28/24 07/28/24 07/28/24 Range/Units 20:59 20:59 20:59 WBC 13.6 H (3.98-10.04) x10^3/uL RBC 5.05 (3.93-5.22) x10^6/uL Hgb 15.1 (11.2-15.7) g/dL Hct 46.1 H (34.1-44.9) % MCV 91.3 (79.4-94.8) fL MCH 29.9 (25.6-32.2) pg MCHC 32.8 (32.2-35.5) g/dL RDW 12.4 (11.7-14.4) % Plt Count 212 (182-369) x10^3/uL MPV 9.0 L (9.4-12.3) fL Gran % 73.7 H (34.0-71.1) % Immature Gran % (Auto) 0.5 H (0.001-0.429) % Nucleat RBC Rel Count 0.0 (0.00-0.2) % Eos # (Auto) 0.20 (0.04-0.36) x10^3/uL Immature Gran # (Auto) 0.07 H (0.001-0.031) x10^3u/L Absolute Lymphs (auto) 2.46 (1.18-3.74) x10^3/uL Absolute Monos (auto) 0.77 (0.24-0.86) x10^3/uL Absolute Nucleated RBC 0.00 (0.00-0.012) x10^3u/L Lymphocytes % 18.0 L (19.3-51.7) % Monocytes % 5.6 (4.7-12.5) % Eosinophils % 1.5 (0.7-5.8) % Basophils % 0.7 (0.1-1.2) % Absolute Granulocytes 10.04 H (1.56-6.13) x10^3/uL Basophils # 0.10 H (0.01-0.08) x10^3/uL Sodium 136 (135-145) mmol/L Potassium 4.3 (3.5-5.1) mmol/L Chloride 97 L (98-107) mmol/L Carbon Dioxide 25 (22-30) mmol/L Anion Gap 18.6 H (5-15) MEQ/L BUN 13 (7-17) mg/dL Creatinine 0.87 (0.52-1.04) mg/dL Estimated GFR 73.0 ML/MIN Glucose 187 H (74-106) mg/dL Calcium 9.1 (8.4-10.2) mg/dL Total Bilirubin 0.50 (0.2-1.3) mg/dL AST 24 (14-36) U/L ALT 20 (0-35) U/L Alkaline Phosphatase 76 (38-126) U/L Troponin I < 0.012 (0.000-0.033) ng/mL Serum Total Protein 7.8 (6.3-8.2) g/dL Albumin 4.3 (3.5-5.0) g/dL - Progress Progress: improved Progress Note: 68-year-old female presents to emergency department for evaluation of pain to her left neck. Physical exam reveals tenderness to palpation along the left neck jawline into the base of her neck near the upper trapezius. Overlying soft tissue intact. No signs of trauma. Laboratory workup shows a elevated white blood cell count. CT scan reveals enlarged submandibular glands bilaterally and sialoadenitis. Patient advised to follow-up with ENT doctor. A prescription for Augmentin and Toradol forwarded to patient's pharmacy. Patient reassessed. Pain significantly improved. She voices no other complaints or concerns at this time. Portions of this note were created with voice recognition technology. There may be grammatical, spelling, punctuation or sound alike errors Complexity of problem addressed is moderate acute complicated. No critical care time. Complexity of data reviewed and analyzed is moderate. Test ordered chest reviewed results analyzed and correlated clinically with history and physical exam. Risk of complication and or risk of morbidity/mortality of patient management is moderate. A prescription for Toradol and Augmentin forwarded to patient's pharmacy. Vital stable. Time spent to discharge patient is approximately 15 minutes. Plan of care established for shared decision making. No social determinants of health present to impede follow-up. Portions of this note were created with voice recognition technology. There may be grammatical, spelling, punctuation or sound alike errors 07/28/24 22:55 Counseled pt/family regarding: lab results, diagnosis, need for follow-up, rad results - Departure Departure Disposition: Home Clinical Impression: Neck pain, Enlargement of submandibular gland, Sialoadenitis Condition: Stable Critical Care Time: No Referrals: JYOTI BURNETTE NP [Primary Care Provider] - Follow up/PCP as directed Additional Instructions: Please follow-up with an ear nose throat doctor within 48 hours for reevaluation Discharge/Care Plan [id number] ZHU was seen on 07/28/24 in the Emergency Room. The patient was counseled regarding Diagnosis,Lab results, Imaging studies, need for follow up and when to return to the Emergency Room. Prescriptions given: Discharge Note I have spoken with the patient and/or caregivers. I have explained the patient's condition, diagnosis and treatment plan based on the information available to me at this time. I have answered the patient's and/or caregiver's questions and addressed any concerns. The patient and/or caregivers have as good understanding of the patient's diagnosis, condition and treatment plan as can be expected at this point. The vital signs have been stable. The patient's condition is stable and appropriate for discharge from the emergency department. The patient will pursue further outpatient evaluation with the primary care physician or other designated or consulting physician as outlined in the discharge instructions. The patient and/or caregivers are agreeable to this plan of care and follow-up instructions have been explained in detail. The patient and/or caregivers have received these instruction. The patient/and or caregivers are aware that any significant change in condition or worsening of symptoms should prompt an immediate return to this or the closest emergency department or call 911. Prescriptions: Amox Tr/Potass Clav. 875 mg [Augmentin 875-125 Tablet] 875 mg PO BID 7 Days #14 tablet Ketorolac Trometh 10 mg Tab [TORAdol 10 MG TABLET] 10 mg PO TID 5 Days #15 tablet
[2024-07-28 21:16] LABS: Absolute Neutrophil Ct (ANC) 10.04 x10^3/uL (1.56-6.13); BASOPHIL % 0.7 % (0.1-1.2); Eosinophil % 1.5 % (0.7-5.8); Hematocrit 46.1 % (34.1-44.9); Hemoglobin 15.1 g/dL (11.2-15.7); IMMATURE GRAN # 0.07 x10^3u/L (0.001-0.031); IMMATURE GRAN % 0.5 % (0.001-0.429); Lymphocyte (Absolute #) 2.46 x10^3/uL (1.18-3.74); Mean Cell Volume 91.3 fL (79.4-94.8); Mean Corpuscular Hemoglobin 29.9 pg (25.6-32.2); Mean Corpuscular Hgb Concent. 32.8 g/dL (32.2-35.5); Monocyte (Absolute #) 0.77 x10^3/uL (0.24-0.86); Monocytes % 5.6 % (4.7-12.5); Neutrophil % 73.7 % (34.0-71.1); Platelet Count 212 x10^3/uL (182-369); Red Blood Count 5.05 x10^6/uL (3.93-5.22); Red Cell Distribution Width 12.4 % (11.7-14.4); White Blood Count 13.6 x10^3/uL (3.98-10.04)
[2024-07-28 21:30] LABS: ALBUMIN 4.3 g/dL (3.5-5.0); ANION GAP 18.6 MEQ/L (5-15); BILIRUBIN,TOTAL 0.5 mg/dL (0.2-1.3); Calcium 9.1 mg/dL (8.4-10.2); Creatinine 1 0.87 mg/dL (0.52-1.04); Potassium 4.3 mmol/L (3.5-5.1); Total Protein 7.8 g/dL (6.3-8.2)
[2024-07-28 23:04] VITALS: BP 132/61; PULSE 73; RESP 16; O2SAT 95
--- NOTE | 2024-07-29 08:48 | XRAY ---
Indication: Pain. Multiple contiguous axial images obtained through the neck using 80 cc Isovue 370 contrast. Comparison: None Enlarged submandibular glands with right gland measuring 3.2 x 2.3 x 4.1 cm and left measuring 2.9 x 2.3 x 3.7 cm. Findings may represent sialoadenitis in right clinical setting. Parotid and thyroid glands unremarkable. A few small subcentimeter bilateral cervical/submandibular lymph nodes, none pathologically enlarged. Major arteries and veins are normal in course and caliber with mild bilateral carotid calcifications. Supra-and infraglottic airway are widely patent. Normal epiglottis. Osseous structures intact with osteopenia and minimal/mild multilevel cervical thoracic degenerative spondylosis. Lung apices demonstrates mild pulmonary emphysema. Base of brain and orbits unremarkable. Impression: 1. Bilaterally enlarged submandibular glands. Rule out sialoadenitis. 2. Chronic findings including arteriosclerotic disease, osteopenia, degenerative spondylosis, and pulmonary emphysema.
== END 2024-07-28 23:12 | disposition home or self-care (01) ==
LOC: ED 20:03
DX: M54.2 Cervicalgia (principal); R59.0 Localized enlarged lymph nodes; K11.20 Sialoadenitis, unspecified; E78.5 Hyperlipidemia, unspecified; I10 Essential (primary) hypertension; E11.9 Type 2 diabetes mellitus without complications; Z79.01 Long term (current) use of anticoagulants; Z79.85 Long-term (current) use of injectable non-insulin antidiabetic drugs; Z79.4 Long term (current) use of insulin; Z79.899 Other long term (current) drug therapy
CPT/HCPCS: 36415; 70491; 80053; 84484; 85025; 93041; 94760; 96374; 96375; 99284; 99285; J1100; J1885